=== PATIENT | male | born 1970 | race Caucasian/White ===

== ENCOUNTER 2017-10-25 12:54 | Emergency (ER) | payer OTHER ==
[~2017-10-25] VITALS: Ht 188 cm; Wt 83.9 kg
[2017-10-25] MEDS ORDERED: ASPIRIN 325 MG TABLET ONE (14:00)
[2017-10-25] MEDS ORDERED: ASPIRIN 325 MG TABLET PO ONE (14:00)
[2017-10-25 14:03] LABS: BASOPHILS % (AUTO) 0.5 % (0.0-2.0); EOSINOPHILS % (AUTO) 2.5 % (0.0-6.0); HEMATOCRIT 44 % (39-51); HEMOGLOBIN 14.8 g/dL (13.5-17.5); LYMPHOCYTES # (AUTO) 1.2 /CMM (0.8-4.8); LYMPHOCYTES % (AUTO) 24.7 % (20.0-44.0); MEAN CORPUSCULAR HEMOGLOBIN 32 PG (26.0-33.0); MEAN CORPUSCULAR HGB CONC 33 g/dl (31.0-36.0); MEAN CORPUSCULAR VOLUME 97 fL (80-96); MONOCYTES # (AUTO) 0.4 /CMM (0.1-1.30); NEUTROPHILS # (AUTO) 3.2 /CMM (1.8-8.9); NEUTROPHILS % (AUTO) 64.3 % (43.0-81.0); PLATELET COUNT (AUTO) 199 /CMM (150-450); RDW COEFFICIENT OF VARIATION 11.5 (11.5-15.0); RED BLOOD CELL COUNT(AUTO) 4.58 MIL/uL (4.5-6.0); WHITE BLOOD COUNT (AUTO) 4.9 K/uL (4.3-11.0)
[2017-10-25 14:10] LABS: CALCIUM, SERUM 9.7 mg/dL (8.5-10.1); CARBON DIOXIDE 32 mmol/L (21-32); CHLORIDE 104 mmol/L (98-107); CREATININE 1.1 mg/dL (0.6-1.3); GLUCOSE 97 mg/dL (74-106); POTASSIUM 3.8 mmol/L (3.5-5.1); SODIUM SERUM 139 mmol/L (136-145); UREA NITROGEN, BLOOD 11 mg/dL (7-18)
[2017-10-25 14:19] LABS: TROPONIN I < 0.017 ng/mL (0.00-0.056)
--- NOTE | 2017-10-25 14:53 | NUR ---
Patient discharged to home in stable condition. Written and verbal after care instructions given. Patient verbalizes understanding of instruction.
[2017-10-25 14:55] VITALS: BP 128/72
== END 2017-10-25 14:57 | disposition home or self-care (01) ==
LOC: ER 12:55
DX: R07.89 Other chest pain (principal); F41.9 Anxiety disorder, unspecified; F17.200 Nicotine dependence, unspecified, uncomplicated
CPT/HCPCS: 36415; 71045; 80048; 84484; 85025; 93005; 99285; A4606; Z7610